=== PATIENT | female | born 1965 | race Asian ===

== ENCOUNTER 2018-04-15 06:00 | Day surgery (SDC) | payer OTHER ==
[2018-04-15] MEDS ORDERED: NA CHLORIDE 0.9% 1,000 ML ONE (06:03)
--- OUTSIDE RECORDS SUMMARY | 2018-04-15 06:09 | XMS REPORT | Clinical Summary ---
:1965 Author Organization [facility] Address [address] [place] [address] Care Team Providers Name Role Phone Asked, No Pcp Primary Care Provider Unavailable Allergies Not on File Medications Medication Sig Dispensed Refills Start Date End Date Status rosuvastatin (CRESTOR) Take 20 mg by 0 Active 20 MG tablet mouth daily. semaglutide (OZEMPIC) Inject 0.25 mg 0 Active 0.25 mg or 0.5 mg(2 under the skin mg/1.5 mL) pen injector every 7 days. irbesartan (AVAPRO) 300 Take 300 mg by 0 Active MG tablet mouth nightly. Irbesartan/HCT 300/12.5mg 1 tablet by mouth daily. Active Problems Not on file Encounters Date Type Specialty Care Team Description 03/16/2018 Weight Management Weight Management Marcellus Landa unspecified H., MD classification, unspecified obesity type, unspecified whether serious comorbidity present (Primary Dx) 03/09/2018 Weight Management Weight Management Marcellus Landa Obesity due to excess MD Angel calories without serious comorbidity, unspecified classification (Primary Dx) 02/16/2018 Weight Management Weight Management Marcellus Landa MD 02/10/2018 Weight Management Weight Management Marcellus Landa MD 02/09/2018 Lab Lab Marcellus Landa unspecified H., MD classification, unspecified obesity type, unspecified whether serious comorbidity present 02/03/2018 Weight Management Weight Management Marcellus Landa MD 01/27/2018 Weight Management Weight Management Marcellus Landa unspecified H., MD classification, unspecified obesity type, unspecified whether serious comorbidity present (Primary Dx) 01/12/2018 Weight Management Weight Management Marcellus Landa MD 01/05/2018 Weight Management Weight Management Marcellus Landa MD 12/31/2017 Lab Lab Marcellus Landa Obesity due to excess MD Angel calories without serious comorbidity, unspecified classification 12/29/2017 Weight Management Marcellus Vidal Obesity due to excess MD Angel calories without serious comorbidity, unspecified classification (Primary Dx) 12/22/2017 Elza Management Marcellus Vidal MD 12/15/2017 Weight Management Marcellus Vidal MD 12/08/2017 Weight Management Marcellus Vidal MD 12/01/2017 Weight Management Weight Marcellus Terrell MD 11/26/2017 Weight Management Weight Marcellus Terrell MD 11/24/2017 Documentation Weight Management Lizette WM Start Up Raven Durna LVN 11/21/2017 Documentation Weight Management Marcellus Landa MD 11/21/2017 Orders Only Weight Management Raven Vang LVN 11/21/2017 Abstract Weight Management Raven Vang LVN after 04/14/2017 Social History Tobacco Use Types Packs/Day Years Used Date Never Assessed Sex Assigned at Date Recorded Not on file Job Start Date Occupation Industry Not on file Not on file Not on file Travel History Travel Start Travel End No recent travel history available. Last Filed Vital Signs Vital Sign Reading Time Taken Blood Pressure 130/86 03/16/2018 5:29 PM CDT Pulse - - Temperature - - Respiratory Rate - - Oxygen Saturation - - Inhaled Oxygen Concentration - - Weight 117 kg (257 lb) 03/16/2018 5:29 PM CDT Height 165.1 cm (5' 5") 03/16/2018 5:29 PM CDT Body Mass Index 42.77 03/16/2018 5:29 PM CDT Plan of Treatment Date Type Specialty Care Team Description 04/20/2018 Weight Management Weight Management Marcellus Landa MD [address] [address] 04/27/2018 Weight Management Weight Management Marcellus Landa MD [address] [id number] 05/04/2018 Weight Management Weight Management Marcellus Landa MD [address] [address] [phone] 05/11/2018 Weight Management Weight Management Marcellus Landa MD [address] [address] [phone] 2018 Weight Management Weight Management Marcellus Landa MD [address] [address] [phone] 05/25/2018 Weight Management Weight Management Marcellus Landa MD [address] [id number] Health Maintenance Due Date Last Done Comments MMR VACCINES (1 of 1 - Standard 1967 series) VARICELLA VACCINES (1 of 2 - 2-dose 1979 adolescent series) CERVICAL CANCER SCREENING 1987 BREAST CANCER SCREENING 2016 COLON CANCER SCREENING 2016 SHINGRIX VACCINE (1 of 2) 2016 INFLUENZA VACCINE 12/17/2017 HEPATITIS B VACCINES Aged Out No longer eligible based on patient's age to complete this topic IPV VACCINES Aged Out No longer eligible based on patient's age to complete this topic MENINGOCOCCAL VACCINE Aged Out No longer eligible based on patient's age to complete this topic Procedures Procedure Name Priority Date/Time Associated Diagnosis Comments ESTIMATED GFR Routine 02/09/2018 5:07 Results for this PM CDT procedure are in the results section. MAGNESIUM LEVEL Routine 02/09/2018 5:07 Obesity, unspecified Results for this PM CDT classification, procedure are in unspecified obesity the results type, unspecified section. whether serious comorbidity present URIC ACID LEVEL Routine 02/09/2018 5:07 Obesity, unspecified Results for this PM CDT classification, procedure are in unspecified obesity the results type, unspecified section. whether serious comorbidity present PHOSPHORUS LEVEL Routine 02/09/2018 5:07 Obesity, unspecified Results for this PM CDT classification, procedure are in unspecified obesity the results type, unspecified section. whether serious comorbidity present LDH Routine 02/09/2018 5:07 Obesity, unspecified Results for this PM CDT classification, procedure are in unspecified obesity the results type, unspecified section. whether serious comorbidity present TRIGLYCERIDES Routine 02/09/2018 5:07 Obesity, unspecified Results for this PM CDT classification, procedure are in unspecified obesity the results type, unspecified section. whether serious comorbidity present CHOLESTEROL Routine 02/09/2018 5:07 Obesity, unspecified Results for this PM CDT classification, procedure are in unspecified obesity the results type, unspecified section. whether serious comorbidity present HEPATIC FUNCTION Routine 02/09/2018 5:07 Obesity, unspecified Results for this PANEL PM CDT classification, procedure are in unspecified obesity the results type, unspecified section. whether serious comorbidity present BASIC METABOLIC PANEL Routine 02/09/2018 5:07 Obesity, unspecified Results for this PM CDT classification, procedure are in unspecified obesity the results type, unspecified section. whether serious comorbidity present ZZESTIMATED GFR Routine 12/31/2017 4:01 Results for this PM CDT procedure are in the results section. MAGNESIUM LEVEL Routine 12/31/2017 4:01 Obesity due to excess Results for this PM CDT calories without procedure are in serious comorbidity, the results unspecified section. classification URIC ACID LEVEL Routine 12/31/2017 4:01 Obesity due to excess Results for this PM CDT calories without procedure are in serious comorbidity, the results unspecified section. classification PHOSPHORUS LEVEL Routine 12/31/2017 4:01 Obesity due to excess Results for this PM CDT calories without procedure are in serious comorbidity, the results unspecified section. classification LDH Routine 12/31/2017 4:01 Obesity due to excess Results for this PM CDT calories without procedure are in serious comorbidity, the results unspecified section. classification TRIGLYCERIDES Routine 12/31/2017 4:01 Obesity due to excess Results for this PM CDT calories without procedure are in serious comorbidity, the results unspecified section. classification CHOLESTEROL Routine 12/31/2017 4:01 Obesity due to excess Results for this PM CDT calories without procedure are in serious comorbidity, the results unspecified section. classification HEPATIC FUNCTION Routine 12/31/2017 4:01 Obesity due to excess Results for this PANEL PM CDT calories without procedure are in serious comorbidity, the results unspecified section. classification BASIC METABOLIC PANEL Routine 12/31/2017 4:01 Obesity due to excess Results for this PM CDT calories without procedure are in serious comorbidity, the results unspecified section. classification after 04/14/2017 Results Estimated GFR (02/09/2018 5:07 PM CDT) Estimated GFR 74 mL/min/1.73 m2 [facility] DEPARTMENT OF Comment: PATHOLOGY AND GENOMIC CatergoryUnitsInterpretation MEDICINE G1 >=90 Normal or high G2 60-89Mildly decreased [id number] to moderately decreased [id number] to severely decreased G4 15-29Severely decreased G5 <15Kidney failure The eGFR was calculated using the Chronic Kidney Disease Epidemiology Collaboration (CKD-EPI) equation. Interpretation is based on recommendations of the National Kidney Foundation-Kidney Disease Outcomes Quality Initiative (NKF-KDOQI) published in 2014. Specimen Plasma specimen Performing Organization Address City/[facility] Phone Number [facility] DEPARTMENT OF PATHOLOGY AND [address] [place] [address] Uric acid level (02/09/2018 5:07 PM CDT)Only the most recent of2 resultswithin the time period is included. Uric acid 5.4 2.4 - 5.7 mg/dL [facility] DEPARTMENT OF PATHOLOGY AND GENOMIC MEDICINE Specimen Plasma specimen Performing Organization Address City/[facility] Phone Number [facility] DEPARTMENT OF PATHOLOGY AND [address] [place] [address] Triglycerides (02/09/2018 5:07 PM CDT)Only the most recent of2 resultswithin the time period is included. Triglycerides 85 <150 mg/dL [facility] DEPARTMENT OF PATHOLOGY AND GENOMIC MEDICINE Specimen Plasma specimen Performing Organization Address [facility] Phone Number [facility] DEPARTMENT OF PATHOLOGY AND [address] [place] [address] Phosphorus level (02/09/2018 5:07 PM CDT)Only the most recent of2 resultswithin the time period is included. Phosphorus 3.9 2.4 - 4.5 mg/dL [facility] DEPARTMENT OF PATHOLOGY AND GENOMIC MEDICINE Specimen Plasma specimen Performing Organization Address City/[facility] Phone Number [facility] DEPARTMENT OF PATHOLOGY AND [address] [place] [address] Magnesium level (02/09/2018 5:07 PM CDT)Only the most recent of2 resultswithin the time period is included. Magnesium 1.4 (L) 1.6 - 2.6 mg/dL [facility] DEPARTMENT OF PATHOLOGY AND GENOMIC MEDICINE Specimen Plasma specimen Performing Organization Address City/[facility] Phone Number [facility] DEPARTMENT OF PATHOLOGY AND [address] [place] [address] LDH (02/09/2018 5:07 PM CDT)Only the most recent of2 resultswithin the time period is included. LDH 217 87 - 225 U/L [facility] DEPARTMENT OF PATHOLOGY AND GENOMIC MEDICINE Specimen Plasma specimen Performing Organization Address City/[facility] Phone Number [facility] DEPARTMENT OF PATHOLOGY AND [address] [place] [address] Cholesterol (02/09/2018 5:07 PM CDT)Only the most recent of2 resultswithin the time period is included. Cholesterol 101 <200 mg/dL [facility] DEPARTMENT OF PATHOLOGY AND GENOMIC MEDICINE Specimen Plasma specimen Performing Organization Address [facility] Phone Number [facility] DEPARTMENT OF PATHOLOGY AND [address] [place] [address] Hepatic function panel (02/09/2018 5:07 PM CDT)Only the most recent of2 resultswithin the time period is included. Albumin 3.9 3.5 - 5.0 g/dL [facility] DEPARTMENT OF PATHOLOGY AND GENOMIC MEDICINE Total bilirubin 0.9 0.0 - 1.2 mg/dL [facility] DEPARTMENT OF PATHOLOGY AND GENOMIC MEDICINE Bilirubin direct <0.2 0.0 - 0.3 mg/dL [facility] DEPARTMENT OF PATHOLOGY AND GENOMIC MEDICINE Alkaline phosphatase 53 35 - 104 U/L [facility] DEPARTMENT OF PATHOLOGY AND GENOMIC MEDICINE Protein 7.4 6.3 - 8.3 g/dL [facility] DEPARTMENT OF Comment: PATHOLOGY AND GENOMIC 4.6-7.0 g/dL MEDICINE 1 week 4.4-7.6 g/dL 7 months-1year5.1-7.3 g/dL 1-2 years5.6-7.5 g/dL >3 years6.0-8.0 g/dL 18-150 6.3-8.3 g/dL ALT 20 5 - 50 U/L [facility] DEPARTMENT OF PATHOLOGY AND GENOMIC MEDICINE AST 19 10 - 35 U/L [facility] DEPARTMENT OF PATHOLOGY AND GENOMIC MEDICINE Specimen Plasma specimen Performing Organization Address [facility] Phone Number [facility] DEPARTMENT OF PATHOLOGY AND [address] [place] [address] Basic metabolic panel (02/09/2018 5:07 PM CDT)Only the most recent of2 resultswithin the time period is included. Sodium 138 135 - 148 mEq/L [facility] DEPARTMENT OF PATHOLOGY AND GENOMIC MEDICINE Potassium 4.2 3.5 - 5.0 mEq/L [facility] DEPARTMENT OF PATHOLOGY AND GENOMIC MEDICINE Chloride 96 (L) 98 - 112 mEq/L [facility] DEPARTMENT OF PATHOLOGY AND GENOMIC MEDICINE CO2 28 24 - 31 mEq/L [facility] DEPARTMENT OF PATHOLOGY AND GENOMIC MEDICINE Anion gap 14@ANIO 7 - 15 mEq/L [facility] DEPARTMENT OF PATHOLOGY AND GENOMIC MEDICINE BUN 17 6 - 20 mg/dL [facility] DEPARTMENT OF PATHOLOGY AND GENOMIC MEDICINE Creatinine 0.90 0.50 - 0.90 mg/dL [facility] DEPARTMENT OF PATHOLOGY AND GENOMIC MEDICINE Glucose 90 65 - 99 mg/dL [facility] DEPARTMENT OF PATHOLOGY AND GENOMIC MEDICINE Calcium 9.9 8.3 - 10.2 mg/dL [facility] DEPARTMENT OF PATHOLOGY AND [employer] MEDICINE Specimen Plasma specimen Performing Organization Address City/State/Zipcode Phone Number [facility] DEPARTMENT OF PATHOLOGY AND [address] [place] [address] Estimated GFR (12/31/2017 4:01 PM CDT) GFR Non Af Amer 66 mL/min/1.73 m2 [facility] DEPARTMENT OF PATHOLOGY AND GENOMIC MEDICINE GFR Af Amer 80 mL/min/1.73 m2 [facility] DEPARTMENT OF Comment: PATHOLOGY AND [facility] Chronic kidney disease: <60 mL/min/1.73m2 MEDICINE Kidney failure: <15 mL/min/1.73m2 The estimated GFR is calculated from the IDMS-traceable Modification of Diet in Renal Disease Equation. The accuracy of the calculation is poor when the creatinine is normal. Calculated values >90 mL/min/1.73m2 are not reported. This equation has not been validated in children (<18 years), women, the elderly (>70 years), or ethnic groups other than Caucasians and Americans. Specimen Plasma specimen Performing Organization Address City/State/Zipcode Phone Number [facility] DEPARTMENT OF PATHOLOGY AND [address] [place], [place] [id number] [facility] after 04/14/2017 Advance Directives Patient has advance care planning documents on file. For more information, please contact:Vitor Russell[address] [place], [place] [id number]
[2018-04-15] MEDS ORDERED: PROPOFOL 200 MG/20 ML VIAL IV ONE ×2 (07:03→07:46)
[2018-04-15] MEDS ORDERED: LIDOCAINE 2% MPF 5 ML VIAL ONE (07:04)
[2018-04-15] MEDS ORDERED: FENTANYL CITR 100 MCG/2 ML ONE (07:04)
[2018-04-15] MEDS ORDERED: MIDAZOLAM HCL 2 MG/2 ML INJ ONE (07:04)
[2018-04-15] MEDS ORDERED: ONDANSETRON HCL 40 MG/20 ML VIAL ONE (07:05)
[2018-04-15] MEDS ORDERED: KETOROLAC 30 MG/ML INJ ONE (08:03)
[2018-04-15 09:06] VITALS: BP 110/71; TEMP 97.2; O2SAT 98
--- NOTE | 2018-04-15 19:16 | OP ---
Date of Procedure: 04/15/2018 Surgeon: Mercedes Shaffer MD Preoperative Diagnoses: Postmenopausal bleeding and endometrial polyp. Postoperative Diagnoses: Postmenopausal bleeding and endometrial polyp. Procedures Performed: Hysteroscopy, polypectomy, and dilation and curettage with Symphion. Anesthesia: General. Specimens: Polyp and curettings. Complications: None. Drains: None. Condition: The patient is stable. Findings: Intrauterine polyp at the left cornual end. Appeared to be irregular on the top. The bas e was thick and pedunculated. The rest of the endometrium appeared to be slightly vascular and thick ened. The entire polyp was removed as well as sampling done in an optimal fashion. Indications For Procedure: The patient is a 52-year-old 5, para 5. She has had postmenopaus al bleeding, which was evaluated with a transvaginal ultrasound. On office hysteroscopy, she was fou nd to have a polyp which was difficult to remove with the tip of the scope, so for adequate sampling and removal of the polyp, she was consented to come to the OR. The patient has risk factors like mor bid obesity, has had amenorrhea and possible PCOS preceding this. Her endometrial thickness was 6 mm . Description Of Procedure: After informed consent was re-verified here, she was taken back to the OR, placed in a supine fashion on the operating table. There was infiltration of her IV, so we had to r estart her IV on the left upper extremity. The right 1 had infiltrated badly with the propofol. Aft er the propofol was given, general anesthesia with LMA was done, then she was placed in a dorsal lith otomy position. Pelvic exam performed. Uterus anteflexed and 8 week size. No adnexal masses were n oted and the uterus appeared to be mobile. A prep x3 with Betadine was done of the vulva and vagina. Speculum placed to expose the cervix. Anterior lip grasped with 2 Allis clamps. Symphion device w as prepared and primed, hysteroscopy was performed with this scope directly through the cervical delmi l. Uterine cavity was entered and pictures were taken of the polyp in the right cornual end. Then, the resection device was opened and inserted. The mean arterial pressure was 85. Her pressure was s et at 100. Normal saline was used for distention medium and with just the cutting mode, the polyp wa s removed completely and curettings were performed in a global fashion optimally. After the pictures were taken, the scope was removed. The deficit was minimal. The patient tolerate d the procedure well. Toradol 30 mg was given intravenously. She was recovered from anesthesia in t he OR and taken to PACU in stable condition. She has a followup to see me for results and discussion in 1 week. SIN Voice ID: [id number] Report ID: [id number]
== END 2018-04-15 09:30 | disposition home or self-care (01) ==
LOC: OR 06:00
PROVIDERS: ATTEND Obstetrics & Gynecology
PROC: 0UDB7ZX Extraction of Endometrium, Via Natural or Artificial Opening, Diagnostic (ICD-10-PCS; 2018-04-15)
PROC: 0UJD8ZZ Inspection of Uterus and Cervix, Via Natural or Artificial Opening Endoscopic (ICD-10-PCS; 2018-04-15)
PROC: 0UB97ZX Excision of Uterus, Via Natural or Artificial Opening, Diagnostic (ICD-10-PCS; principal; 2018-04-15 07:00)
DX: N95.0 Postmenopausal bleeding (principal); N84.0 Polyp of corpus uteri; E11.9 Type 2 diabetes mellitus without complications; I10 Essential (primary) hypertension; E78.5 Hyperlipidemia, unspecified; E66.01 Morbid (severe) obesity due to excess calories; Z83.3 Family history of diabetes mellitus; Z82.3 Family history of stroke; Z82.49 Family history of ischemic heart disease and other diseases of the circulatory system
CPT/HCPCS: 81025; 82962; 88305; J2250; J2405; J2704; J3010; J7030